=== PATIENT | male | born 2000 | race American Indian/Alaskan Native ===

== ENCOUNTER 2019-10-24 12:34 | Emergency (ER) | payer SELFPAY ==
--- NOTE | 2019-10-24 12:39 | Emergency Department Report ---
Blank Doc - Documentation Documentation: 18-year-old male that presents with left ankle pain and swelling after fall. This initial assessment/diagnostic orders/clinical plan/treatment(s) is/are subject to change based on patient's health status, clinical progression and re- assessment by fellow clinical providers in the ED. Further treatment and workup at subsequent clinical providers discretion. Patient/guardians urged not to elope from the ED as their condition may be serious if not clinically assessed and managed. Initial orders include: 1- Patient sent to [facility] for further evaluation and treatment 2- xrays
[2019-10-24 12:43] VITALS: BP 136/73
--- NOTE | 2019-10-24 13:22 | XRay Report ---
. LEFT ANKLE 3 VIEWS INDICATION / CLINICAL INFORMATION: ankle pain and swellgin. COMPARISON: None available. FINDINGS: No fracture, dislocation or soft tissue swelling is seen within the left ankle. Ankle mortise appears intact. Signer Name: Alban Royal MD Signed: 10/24/2019 1:18 PM Workstation Name: [id number]
--- NOTE | 2019-10-24 13:45 | Emergency Department Report ---
ED Lower Extremity HPI - General Chief Complaint: Extremity Injury, Lower Stated Complaint: L ANKLE INJURY Time Seen by Provider: 10/24/19 12:38 Source: patient Mode of arrival: Wheelchair Limitations: No Limitations - History of Present Illness Initial Comments: 18-year-old male with left ankle pain since falling in a ditch on yesterday. Patient states he felt something pop. No swelling currently. MD Complaint: ankle injury -: days(s) (1) Injury: Ankle: Left Place: home Severity: mild Improves With: immobilization Worsens With: weight bearing, movement Context: fall Associated Symptoms: denies: swelling, numbness, tingling - Related Data Previous Rx's Medication Instructions Recorded Last Taken Type Diphenoxylate/Atropine [Lomotil] 1 tab PO Q4H PRN #10 tablet 02/02/14 Unknown Rx Ondansetron [Zofran Odt] 4 mg PO Q4-6H PRN #14 tab.rapdis 02/02/14 Unknown Rx Allergies Allergy/AdvReac Type Severity Reaction Status Date / Time Penicillins Allergy Hives Verified 02/02/14 20:09 ED Review of Systems ROS: Stated complaint: L ANKLE INJURY Other details as noted in HPI Comment: All other systems reviewed and negative Musculoskeletal: as per HPI Neurological: denies: numbness, paresthesias ED Past Medical Hx - Past Medical History Previous Medical History?: No - Surgical History Past Surgical History?: No - Social History Smoking Status: Never Smoker Substance Use Type: None - Medications Home Medications: Home Medications Medication Instructions Recorded Confirmed Last Taken Type Diphenoxylate/Atropine [Lomotil] 1 tab PO Q4H PRN #10 tablet 02/02/14 Unknown Rx Ondansetron [Zofran Odt] 4 mg PO Q4-6H PRN #14 tab.rapdis 02/02/14 Unknown Rx ED Physical Exam - General Limitations: No Limitations General appearance: alert, in no apparent distress - Head Head exam: Present: atraumatic, normocephalic - Eye Eye exam: Present: normal appearance - ENT ENT exam: Present: mucous membranes moist - Neck Neck exam: Present: normal inspection - Respiratory Respiratory exam: Present: normal lung sounds bilaterally. Absent: respiratory distress - Cardiovascular Cardiovascular Exam: Present: regular rate, normal rhythm - GI/Abdominal GI/Abdominal exam: Absent: distended - Extremities Exam Extremities exam: Present: normal inspection, other (no pointe tenderness to left foot or ankle; pain with ROM of the foot and ankle) ED Course Vital Signs 10/24/19 12:42 Temperature 98.7 F Pulse Rate 99 H Respiratory 18 Rate Blood Pressure 136/73 O2 Sat by Pulse 96 Oximetry ED Lower Extremity MDM - Radiology Data Radiology results: report reviewed, image reviewed - Medical Decision Making 18-year-old male with left ankle pain following a fall yesterday. Patient has no significant tenderness on exam. There is no swelling or bruising present. X-rays ordered from triage are normal, no evidence of fracture present. Patient does not have an emergent medical condition at this time. Outpatient resources given. Return precautions given. - Differential Diagnosis sprain, fracture Critical care attestation.: If time is entered above; I have spent that time in minutes in the direct care of this critically ill patient, excluding procedure time. ED Disposition Clinical Impression: Left ankle sprain Disposition: [facility] SCREENING EXAM-LEFT Is pt being admited?: No Condition: Stable Instructions: Ankle Sprain (ED) Referrals: [facility] [Provider Group] - 3-5 Days Time of Disposition: 13:48
== END 2019-10-24 14:02 | disposition left against medical advice (07) ==
LOC: ED 12:34
DX: S93.402A Sprain of unspecified ligament of left ankle, initial encounter (principal); W18.30XA Fall on same level, unspecified, initial encounter; Y93.89 Activity, other specified; Y92.89 Other specified places as the place of occurrence of the external cause; Y99.8 Other external cause status